=== PATIENT | female | born 1970 | race Hispanic/Latino ===

== ENCOUNTER 2022-01-24 12:02 | Emergency (ER) | payer OTHER ==
[~2022-01-24] VITALS: Ht 162.6 cm; Wt 101.2 kg
[~2022-01-24 12:02] MED LIST: IBUPROFEN600 MG PO; LEVEMIR100 UNIT/1 SC; NOVOLOG100 UNIT/1 SC
[2022-01-24] MEDS ORDERED: PRAVASTATIN SOD20 MG (14:05)
[2022-01-24] MEDS ORDERED: LISINOPRIL10 MG PO (14:05)
[2022-01-24] MEDS ORDERED: LEVOTHYROXINE50 MCG PO (14:05)
[2022-01-24] MEDS ORDERED: OZEMPIC0.25 MG/0. SC (14:05)
[2022-01-24] MEDS ORDERED: SYNJARDY XR 101 EACH (14:05)
[2022-01-24] MEDS ORDERED: TRULICITY0.75 MG/0. (14:05)
[2022-01-24] MEDS ORDERED: LOPID600 MG PO (14:05)
[2022-01-24] MEDS ORDERED: D3-5000125 MCG (14:05)
[2022-01-24] MEDS ORDERED: NAPROSYN500 MG PO (16:00)
== END 2022-01-24 16:15 | disposition home or self-care (01) ==
LOC: FSED 12:15
DX: M25.531 Pain in right wrist (principal); M65.88 Other synovitis and tenosynovitis, other site; M25.431 Effusion, right wrist; E11.9 Type 2 diabetes mellitus without complications; I10 Essential (primary) hypertension; E78.5 Hyperlipidemia, unspecified; E03.9 Hypothyroidism, unspecified; M54.9 Dorsalgia, unspecified; G89.29 Other chronic pain; F41.9 Anxiety disorder, unspecified
CPT/HCPCS: 99283

== ENCOUNTER 2023-01-27 10:32 | Emergency (ER) | payer OTHER ==
[~2023-01-27] VITALS: Ht 162.6 cm; Wt 96.7 kg
[~2023-01-27 10:32] MED LIST changes: +D3-5000125 MCG; +LEVOTHYROXINE50 MCG PO; +LISINOPRIL10 MG PO; +LOPID600 MG PO; +NAPROSYN500 MG PO; +OZEMPIC0.25 MG/0. SC; +PRAVASTATIN SOD20 MG; +SYNJARDY XR 101 EACH; +TRULICITY0.75 MG/0.
[2023-01-27] MEDS ORDERED: CRESTOR10 MG PO (11:15)
[2023-01-27] MEDS ORDERED: TRULICITY1.5 MG/0.5 (11:15)
[2023-01-27] MEDS ORDERED: MELOXICAM7.5 MG PO (11:15)
[2023-01-27] MEDS ORDERED: TRICOR145 MG PO (11:15)
[2023-01-27] MEDS ORDERED: AZITHROMYCIN250 MG PO (11:18)
[2023-01-27] MEDS ORDERED: PREDNISONE20 MG PO (11:18)
[2023-01-27] MEDS ORDERED: VENTOLIN HFA18 GM INH (11:18)
[2023-01-27 11:30] VITALS: O2SAT 97
[2023-01-27] MEDS ORDERED: IOPAMIDOL 370 MG/ML 100 ML INFUS..BTL INJ ONE (13:47)
== END 2023-01-27 11:30 | disposition home or self-care (01) ==
LOC: FSED 10:38
DX: R05.9 Cough, unspecified (principal); J06.9 Acute upper respiratory infection, unspecified; I10 Essential (primary) hypertension; E11.9 Type 2 diabetes mellitus without complications; E78.5 Hyperlipidemia, unspecified; E03.9 Hypothyroidism, unspecified; F41.9 Anxiety disorder, unspecified; M54.9 Dorsalgia, unspecified; G89.29 Other chronic pain; Z20.822 Contact with and (suspected) exposure to COVID-19
CPT/HCPCS: 0223U; 87400; 99283; Q9967